=== PATIENT | female | born 1945 | race Two or more races ===

== ENCOUNTER 2020-05-10 21:51 | Inpatient (IN) | payer MEDICARE, MEDICAID ==
[~2020-05-10] VITALS: Ht 160 cm; Wt 45.0 kg
[2020-05-10] MEDS ORDERED: ACETAMINOPHEN 650 MG RECT SUPP PR ONE ×2 (22:43→22:45)
[2020-05-10 22:47] LABS: Urine Amorphous Crystal MOD /hpf (None Seen); Urine Bacteria MANY /hpf (None Seen); Urine Blood 2+ /uL (Negative); Urine Mucus FEW (None Seen); Urine Specific Gravity 1.017 (1.001-1.035); Urine WBC 124 /hpf (0 - 5)
[2020-05-10 22:57] LABS: Basophils # (auto) 0 10 ^3/uL (0-0.2); Basophils % (auto) 0.2 % (0.0-2.0); Eosinophils # (auto) 0 10 ^3/uL (0-0.8); Eosinophils % (auto) 0.1 % (0.0-7.0); Hematocrit 35.6 % (36.0-46.0); Hemoglobin 12.2 g/dL (12.2-16.2); Lymphocytes # (auto) 0.6 10 ^3/uL (0.4-5.4); Lymphocytes % (auto) 5.9 % (10.0-50.0); Mean Corpuscular Hemoglobin 33.5 pg (28.0-32.0); Mean Corpuscular Hgb Conc. 34.4 g/dL (32.0-36.0); Mean Corpuscular Volume 97.2 fL (80.0-100.0); Monocytes # (auto) 0.9 10 ^3/uL (0-1.3); Monocytes % (auto) 9.3 % (0.0-12.0); Neutrophils # (auto) 8.5 10 ^3/uL (1.6-8.6); Neutrophils % (auto) 84.5 % (37.0-80.0); Platelet Count (auto) 304 10^3/uL (140-450); Red Blood Cells 3.66 10^6/uL (4.0-5.20); Red Cell Distribution Width 13.5 % (11.8-14.3)
[2020-05-10 23:18] LABS: Calcium 8.5 mg/dL (8.5-10.1); Potassium 3.5 mmol/L (3.5-5.1)
[2020-05-10 23:23] LABS: Albumin 3.4 g/dL (3.4-5.0); BUN/Creatinine Ratio 45.7; Bilirubin, Total 0.3 mg/dL (0.2-1.0); Total Protein 7.9 g/dL (6.4-8.2)
[2020-05-11] MEDS ORDERED: HYDROcodone-ACET 10/325MG TAB PO ONE (03:45)
[2020-05-11] MEDS ORDERED: ONDANSETRON HCL 4 MG/2 ML VIAL IV PRN (03:45)
[2020-05-11] MEDS ORDERED: ACETAMINOPHEN 325 MG TAB PO PRN (03:45)
[2020-05-11] MEDS: cefTRIAXone 1GM/50ML D5W 50 ML IV SCH ×2 (05:07→09:00)
[2020-05-11] MEDS: CARBIDOPA W LEVODOPA 25/100mg TABLET PO SCH ×3 (09:17→21:03)
[2020-05-11] MEDS: HYDROcodone-ACET 5/325MG TAB PO PRN ×2 (09:23→22:27)
[2020-05-11] MEDS: FAMOTIDINE 20 MG TAB PO SCH (10:21)
[2020-05-11] MEDS: ENOXAPARIN SOD 40 MG/0.4 ML SYRINGE SC SCH (10:21)
[2020-05-11] MEDS: AMANTADINE HCL 100 MG CAP PO SCH (10:21)
[2020-05-11 19:35] VITALS: BP 107/88
[2020-05-11] MEDS: DONEPEZIL HYDROCHLORIDE 5 MG TAB PO SCH (21:03)
[2020-05-11] MEDS ORDERED: KETO2CRE4 TOP (21:28)
[2020-05-11] MEDS ORDERED: ZOLP5TAB5 PO (21:28)
[2020-05-11] MEDS ORDERED: DONE5TAB80 PO (21:28)
[2020-05-11] MEDS ORDERED: CARB25TA23 (21:28)
[2020-05-11] MEDS ORDERED: QUET25TA46 PO (21:28)
[2020-05-11] MEDS ORDERED: GLYC1TAB18 PO (21:28)
[2020-05-11] MEDS ORDERED: AMAN100C13 PO (21:28)
[2020-05-11] MEDS ORDERED: ENTA200T4 PO (21:28)
[2020-05-11] MEDS ORDERED: RASA1TAB4 PO (21:28)
[2020-05-11] MEDS ORDERED: DICL1GEL50 TOP (21:28)
[2020-05-11] MEDS ORDERED: ERGO1CAP12 PO (21:28)
[2020-05-11] MEDS ORDERED: INFLUENZA QUAD 2020-2021 0.5 ML SYRG IM ONE (21:45)
[2020-05-11] MEDS ORDERED: PNEUMOCOCCAL VACC POLYS 25 MCG/0.5 ML VIAL IM ONE (21:45)
[2020-05-11 21:50] VITALS: BP 106/57
[2020-05-12] MEDS: MORPHINE SULF INJ 2 MG/ML SYRINGE 1ML IV PRN (02:05)
[2020-05-12] MEDS: HYDROcodone-ACET 5/325MG TAB PO PRN ×3 (04:32→20:37)
[2020-05-12] MEDS: CARBIDOPA W LEVODOPA 25/100mg TABLET PO SCH ×3 (05:10→20:37)
[2020-05-12 06:31] LABS: Basophils # (auto) 0.1 10 ^3/uL (0-0.2); Eosinophils # (auto) 0.1 10 ^3/uL (0-0.8); Eosinophils % (auto) 1.1 % (0.0-7.0); Hematocrit 34.4 % (36.0-46.0); Hemoglobin 11.6 g/dL (12.2-16.2); Lymphocytes # (auto) 1.1 10 ^3/uL (0.4-5.4); Lymphocytes % (auto) 21.9 % (10.0-50.0); Mean Corpuscular Hemoglobin 33.1 pg (28.0-32.0); Mean Corpuscular Hgb Conc. 33.8 g/dL (32.0-36.0); Mean Corpuscular Volume 97.9 fL (80.0-100.0); Monocytes # (auto) 0.6 10 ^3/uL (0-1.3); Monocytes % (auto) 11.8 % (0.0-12.0); Neutrophils # (auto) 3.4 10 ^3/uL (1.6-8.6); Neutrophils % (auto) 64.2 % (37.0-80.0); Nucleated Red Blood Cells % 0.1 %; Platelet Count (auto) 295 10^3/uL (140-450); Red Blood Cells 3.52 10^6/uL (4.0-5.20); Red Cell Distribution Width 13.8 % (11.8-14.3); White Blood Cell 5.2 10^3/uL (4.4-10.8)
[2020-05-12 06:41] LABS: Calcium 8.9 mg/dL (8.5-10.1); Potassium 3.7 mmol/L (3.5-5.1)
[2020-05-12 06:43] LABS: BUN/Creatinine Ratio 42.2
[2020-05-12 08:00] VITALS: BP 112/59
[2020-05-12] MEDS: cefTRIAXone 1GM/50ML D5W 50 ML IV SCH (10:14)
[2020-05-12] MEDS: AMANTADINE HCL 100 MG CAP PO SCH (10:15)
[2020-05-12] MEDS: FAMOTIDINE 20 MG TAB PO SCH (10:15)
[2020-05-12] MEDS: ENOXAPARIN SOD 40 MG/0.4 ML SYRINGE SC SCH (10:16)
[2020-05-12 12:00] VITALS: BP 119/67
[2020-05-12 17:00] VITALS: BP 104/42
[2020-05-12] MEDS: DONEPEZIL HYDROCHLORIDE 5 MG TAB PO SCH (20:37)
[2020-05-12 22:00] VITALS: BP 122/59
[2020-05-13 05:00] VITALS: BP 147/76
[2020-05-13] MEDS: CARBIDOPA W LEVODOPA 25/100mg TABLET PO SCH ×3 (05:49→22:01)
[2020-05-13 09:00] VITALS: BP 144/84
[2020-05-13] MEDS: cefTRIAXone 1GM/50ML D5W 50 ML IV SCH (09:00)
[2020-05-13] MEDS: FAMOTIDINE 20 MG TAB PO SCH (10:00)
[2020-05-13] MEDS: ENOXAPARIN SOD 40 MG/0.4 ML SYRINGE SC SCH (10:00)
[2020-05-13] MEDS: AMANTADINE HCL 100 MG CAP PO SCH (10:00)
[2020-05-13 13:00] VITALS: BP 136/83
[2020-05-13 17:00] VITALS: BP 125/71
[2020-05-13] MEDS: MORPHINE SULF INJ 2 MG/ML SYRINGE 1ML IV PRN (20:09)
[2020-05-13 21:36] VITALS: BP 121/59
[2020-05-13] MEDS: DONEPEZIL HYDROCHLORIDE 5 MG TAB PO SCH (22:01)
[2020-05-14 05:07] VITALS: BP 118/69
[2020-05-14] MEDS: CARBIDOPA W LEVODOPA 25/100mg TABLET PO SCH ×3 (05:51→22:11)
[2020-05-14 06:18] LABS: Basophils # (auto) 0 10 ^3/uL (0-0.2); Basophils % (auto) 0.9 % (0.0-2.0); Eosinophils # (auto) 0.1 10 ^3/uL (0-0.8); Eosinophils % (auto) 2.4 % (0.0-7.0); Hematocrit 35.3 % (36.0-46.0); Hemoglobin 12.1 g/dL (12.2-16.2); Lymphocytes # (auto) 1.1 10 ^3/uL (0.4-5.4); Lymphocytes % (auto) 26.5 % (10.0-50.0); Mean Corpuscular Hemoglobin 33.4 pg (28.0-32.0); Mean Corpuscular Hgb Conc. 34.3 g/dL (32.0-36.0); Mean Corpuscular Volume 97.5 fL (80.0-100.0); Monocytes # (auto) 0.4 10 ^3/uL (0-1.3); Monocytes % (auto) 9.4 % (0.0-12.0); Neutrophils # (auto) 2.5 10 ^3/uL (1.6-8.6); Neutrophils % (auto) 60.8 % (37.0-80.0); Platelet Count (auto) 324 10^3/uL (140-450); Red Blood Cells 3.62 10^6/uL (4.0-5.20); Red Cell Distribution Width 13.4 % (11.8-14.3); White Blood Cell 4.2 10^3/uL (4.4-10.8)
[2020-05-14 06:48] LABS: Potassium 3.9 mmol/L (3.5-5.1)
[2020-05-14 06:56] LABS: BUN/Creatinine Ratio 44.6
[2020-05-14 08:45] VITALS: BP 132/73
[2020-05-14] MEDS: cefTRIAXone 1GM/50ML D5W 50 ML IV SCH (09:00)
[2020-05-14] MEDS: FAMOTIDINE 20 MG TAB PO SCH (09:55)
[2020-05-14] MEDS: ENOXAPARIN SOD 40 MG/0.4 ML SYRINGE SC SCH (09:56)
[2020-05-14] MEDS: AMANTADINE HCL 100 MG CAP PO SCH (09:56)
[2020-05-14] MEDS ORDERED: VANCOMYCIN PER PHARMACY 0 MG IV SCH (12:15)
[2020-05-14 13:00] VITALS: BP 124/69
[2020-05-14] MEDS ORDERED: VANCOMYCIN 750mg/250ml 250 ML IV SCH (14:00)
[2020-05-14 16:53] VITALS: BP 133/75
[2020-05-14 22:00] VITALS: BP 138/76
[2020-05-14] MEDS: DONEPEZIL HYDROCHLORIDE 5 MG TAB PO SCH (22:11)
[2020-05-15 05:00] VITALS: BP 113/59
[2020-05-15] MEDS: CARBIDOPA W LEVODOPA 25/100mg TABLET PO SCH ×2 (05:34→13:32)
[2020-05-15 05:41] LABS: Basophils # (auto) 0 10 ^3/uL (0-0.2); Eosinophils # (auto) 0.1 10 ^3/uL (0-0.8); Eosinophils % (auto) 2.6 % (0.0-7.0); Hematocrit 35.7 % (36.0-46.0); Hemoglobin 11.9 g/dL (12.2-16.2); Lymphocytes # (auto) 1.4 10 ^3/uL (0.4-5.4); Lymphocytes % (auto) 31.1 % (10.0-50.0); Mean Corpuscular Hemoglobin 32.1 pg (28.0-32.0); Mean Corpuscular Hgb Conc. 33.2 g/dL (32.0-36.0); Mean Corpuscular Volume 96.8 fL (80.0-100.0); Monocytes # (auto) 0.5 10 ^3/uL (0-1.3); Monocytes % (auto) 10.7 % (0.0-12.0); Neutrophils # (auto) 2.5 10 ^3/uL (1.6-8.6); Neutrophils % (auto) 54.6 % (37.0-80.0); Platelet Count (auto) 340 10^3/uL (140-450); Red Blood Cells 3.69 10^6/uL (4.0-5.20); Red Cell Distribution Width 13.3 % (11.8-14.3); White Blood Cell 4.6 10^3/uL (4.4-10.8)
[2020-05-15 05:55] LABS: BUN/Creatinine Ratio 40.6; Calcium 8.6 mg/dL (8.5-10.1); Potassium 3.8 mmol/L (3.5-5.1)
[2020-05-15 09:19] VITALS: BP 123/68
[2020-05-15] MEDS: AMANTADINE HCL 100 MG CAP PO SCH (10:44)
[2020-05-15] MEDS: cefTRIAXone 1GM/50ML D5W 50 ML IV SCH (10:44)
[2020-05-15] MEDS: FAMOTIDINE 20 MG TAB PO SCH (10:45)
[2020-05-15] MEDS: ENOXAPARIN SOD 40 MG/0.4 ML SYRINGE SC SCH (10:45)
[2020-05-15] MEDS ORDERED: VANCOMYCIN PER PHARMACY 0 MG IV SCH (12:30)
[2020-05-15 13:00] VITALS: BP 130/72
[2020-05-15] MEDS ORDERED: VANCOMYCIN 750mg/250ml 250 ML IV SCH (14:00)
[2020-05-15 17:00] VITALS: BP 125/64
[2020-05-15 20:17] VITALS: BP 140/82
[2020-05-15] MEDS ORDERED: PNEUMOCOCCAL VACC POLYS 25 MCG/0.5 ML VIAL IM ONE (21:00)
[2020-05-15] MEDS ORDERED: LINEZOLID 600MG TABLET PO SCH ×2 (22:00)
== END 2020-05-15 21:16 | DRG 698 ==
LOC: ER 21:54 → OVERFLOW 21:55 → EAST 05-11 19:45 → WEST WING 05-12 15:52
PROVIDERS: ADMIT Nurse Practitioner; ATTEND Internal Medicine
PROC: 2W3FX1Z Immobilization of Left Hand using Splint (ICD-10-PCS; principal; 2020-05-10)
PROC: 0T2BX0Z Change Drainage Device in Bladder, External Approach (ICD-10-PCS; 2020-05-10)
DX: T83.091A Other mechanical complication of indwelling urethral catheter, initial encounter (principal); G93.41 Metabolic encephalopathy; S52.532A Colles' fracture of left radius, initial encounter for closed fracture; N39.0 Urinary tract infection, site not specified; G25.9 Extrapyramidal and movement disorder, unspecified; R62.7 Adult failure to thrive; G20 Parkinson's disease; M41.9 Scoliosis, unspecified; M85.80 Other specified disorders of bone density and structure, unspecified site; N31.9 Neuromuscular dysfunction of bladder, unspecified; Z23 Encounter for immunization; B95.62 Methicillin resistant Staphylococcus aureus infection as the cause of diseases classified elsewhere; F02.80 Dementia in other diseases classified elsewhere, unspecified severity, without behavioral disturbance, psychotic disturbance, mood disturbance, and anxiety; N89.8 Other specified noninflammatory disorders of vagina; W01.0XXA Fall on same level from slipping, tripping and stumbling without subsequent striking against object, initial encounter; Z20.822 Contact with and (suspected) exposure to COVID-19; Y73.8 Miscellaneous gastroenterology and urology devices associated with adverse incidents, not elsewhere classified; B95.2 Enterococcus as the cause of diseases classified elsewhere; Y93.89 Activity, other specified; Y92.89 Other specified places as the place of occurrence of the external cause; Y99.8 Other external cause status
CPT/HCPCS: 36415; 71045; 73090; 73120; 80048; 80053; 81001; 82962; 84443; 85025; 87081; 87086; 87088; 87186; 87426; 93005; 96372; 97163; G0378; J0696

== ENCOUNTER 2020-07-02 19:45 | Emergency (ER) | payer MEDICARE, MEDICAID ==
[~2020-07-02] VITALS: Ht 157.5 cm; Wt 63.5 kg
[~2020-07-02 19:45] MED LIST: AMAN100C13 PO; CARB25TA23; DONE5TAB80 PO; ENTA200T4 PO; ERGO1CAP12 PO; GLYC1TAB18 PO; KETO2CRE4 TOP; QUET25TA46 PO; RASA1TAB4 PO; ZOLP5TAB5 PO
[2020-07-02] MEDS ORDERED: SODIUM CHLORIDE 0.9% 500 ML IVB ONE (20:15)
[2020-07-02] MEDS ORDERED: ACETAMINOPHEN 325 MG TAB PO ONE (20:15)
[2020-07-02 21:36] LABS: Basophils # (auto) 0.1 10 ^3/uL (0-0.2); Basophils % (auto) 0.7 % (0.0-2.0); Eosinophils # (auto) 0.1 10 ^3/uL (0-0.8); Eosinophils % (auto) 1.5 % (0.0-7.0); Hemoglobin 12.8 g/dL (12.2-16.2); Lymphocytes # (auto) 1.6 10 ^3/uL (0.4-5.4); Mean Corpuscular Hemoglobin 31.8 pg (28.0-32.0); Mean Corpuscular Hgb Conc. 33.6 g/dL (32.0-36.0); Mean Corpuscular Volume 94.6 fL (80.0-100.0); Monocytes # (auto) 0.6 10 ^3/uL (0-1.3); Monocytes % (auto) 8.6 % (0.0-12.0); Neutrophils # (auto) 4.8 10 ^3/uL (1.6-8.6); Neutrophils % (auto) 67.2 % (37.0-80.0); Nucleated Red Blood Cells % 0.1 %; Platelet Count (auto) 323 10^3/uL (140-450); Red Blood Cells 4.02 10^6/uL (4.0-5.20); Red Cell Distribution Width 14.7 % (11.8-14.3); White Blood Cell 7.1 10^3/uL (4.4-10.8)
[2020-07-02 21:54] LABS: INR 0.97 (0.9-1.15); Partial Thromboplastin Time 24.5 sec (23.0-31.2)
[2020-07-02 22:05] LABS: Albumin 3.2 g/dL (3.4-5.0); Calcium 8.4 mg/dL (8.5-10.1); Chloride 108 mmol/L (98-107); Sodium 141 mmol/L (136-145)
[2020-07-02 22:12] LABS: Anion Gap 6 (5-15); BUN/Creatinine Ratio 47.5; Blood Urea Nitrogen 29 mg/dL (7-18); Carbon Dioxide 27 mmol/L (21-32); Glucose 107 mg/dL (74-106)
[2020-07-02 22:13] LABS: Alanine Aminotransferase 20 U/L (13-56); Alkaline Phosphatase 40 U/L (45-117); Aspartate Aminotransferase 39 U/L (15-37); Bilirubin, Total 0.2 mg/dL (0.2-1.0); GFR African American 124 mL/min; GFR Non-African American 102 mL/min; Total Protein 7.1 g/dL (6.4-8.2)
[2020-07-02 22:17] LABS: Urine Bacteria FEW /hpf (None Seen); Urine Blood Negative /uL (Negative); Urine WBC 39 /hpf (0 - 5)
[2020-07-03] MEDS ORDERED: MORPHINE SULF INJ 2 MG/ML SYRINGE 1ML IV ONE (01:45)
[2020-07-03] MEDS ORDERED: cefTRIAXone 1GM/50ML D5W 50 ML IV ONE (05:45)
[2020-07-03 09:24] VITALS: BP 163/60
== END 2020-07-03 07:03 | disposition short-term general hospital (02) ==
LOC: ER 19:45 → EDBD 19:45 → ER 07-03 07:03
DX: N39.0 Urinary tract infection, site not specified (principal); G31.83 Neurocognitive disorder with Lewy bodies; F02.80 Dementia in other diseases classified elsewhere, unspecified severity, without behavioral disturbance, psychotic disturbance, mood disturbance, and anxiety; M25.512 Pain in left shoulder; Z79.899 Other long term (current) drug therapy; W06.XXXA Fall from bed, initial encounter; Y93.89 Activity, other specified; Y92.89 Other specified places as the place of occurrence of the external cause; Y99.8 Other external cause status
CPT/HCPCS: 36415; 51702; 70450; 71045; 72125; 73030; 80053; 81001; 83605; 84484; 85025; 85610; 85730; 87086; 87088; 87186; 93005; 96361; 96365; 96375; 99285; J0696; J2270; J7030